=== PATIENT | female | born 1995 | race Caucasian/White ===

== ENCOUNTER 2016-08-18 02:05 | Outpatient (CLI) | payer OTHER ==
[~2016-08-18] VITALS: Ht 152.4 cm; Wt 61.4 kg
[~2016-08-18 02:05] MED LIST: ACET500C5 PO; ASPI1TAB2 PO; BACTDS PO; CEPH-443 PO; CEPH500C PO; DENIES; IBUP-1542 PO; MECL25TA2 PO; METO10TA92 PO
[2016-08-18 02:22] VITALS: Ht 152.4 cm; Wt 61.4 kg
[2016-08-18] MEDS ORDERED: PREN1TAB79 PO (02:22)
[2016-08-18 02:23] VITALS: BP 113/68; PULSE 85; RESP 20
--- NOTE | 2016-08-18 03:22 | PN ---
Date/Time of Note Date/Time of Note DATE: 08/18/16 TIME: 03:16 OB Subjective Subjective Subjective . 21 Year-old G1 with SIUP at 32 4/7 presents with a chief complaint of abdominal pain and diarrhea. She states good movement. She denies nausea, vomiting , shortness of breath, chest pain, headache, visual changes, vaginal bleeding or LOF. OB Objective Objective Objective Physical Exam: General: Patient appears well, alert and oriented, NAD, appropriate mood and affect ABD: gravid, soft, mild epigastric tenderness. Back: No CVA tenderness (B/L) LE: No clubbing, cyanosis, edema, thigh or calf tenderness bilaterally FHT: 135 bpm , moderate variability with acceleration, no deceleration-category I Contractions: Occasional OB Assessment/Plan Other plan: 21 Year-old G1 with SIUP at 32 4/7 wks with epigastric pain and diarrhea - FHR: No sign of metabolic acidosis- Category I - Continuous EFM, toco - Reactive NST - Recommend increase fluid intake - GI cocktail - Abdominal us - Symptoms and sign of labor, preeclampsia, kick count discussed with patient, she voiced understanding. All of her questions answered. - If us is nml, she may discharged home with follow-up with her primary Ob or outpatient clinic in 1-2 days or return to the ER for worsening symptoms or any other urgent concerns. NGHIA CLAY Aug 18, 2016 03:22
[2016-08-18 03:26] LABS: URINE BLOOD (Dip) POC Negative (NEGATIVE)
[2016-08-18] MEDS ORDERED: LIDOCAINE/MYLANTA 40 ML BTL PO ONE (03:30)
--- NOTE | 2016-08-18 04:36 | RADRPT ---
PROCEDURE: Ultrasound of the abdomen. CLINICAL INDICATION: Right upper quadrant pain. TECHNIQUE: Sonographic images of the abdomen were performed. COMPARISON: No pertinent prior examinations were submitted for comparison. FINDINGS: Liver: The liver is normal in echogencity and size measuring approximately 16.6 cm. The hepatic vei ns and portal veins are patent with appropriate directional flow. No intrahepatic ductal dilatation is seen. Gallbladder: The gallbladder is not distended and has normal wall thickness. No pericholecystic flu id or gallstones are visualized. The common duct measures 3.3 mm. Pancreas: Obscured by bowel gas. Kidneys: The right kidney measures 11.7 cm. There is normal corticomedullary differentiation. Ther e is mild right hydronephrosis. No definite urinary calculi are identified. IVC: The visualized portion of the inferior vena cava is unremarkable. Aorta: Normal in size. Free fluid: None. IMPRESSION: Mild right hydronephrosis. RPTAT: HIKT .Abel Russo MD, MD Date Time Electronically viewed and signed by .Abel Russo MD, on 08/18/2016 04:36 .T/
--- NOTE | 2016-08-18 05:49 | TRIAGE ---
OB Triage Datetime Report Generated by CPN: 08/18/2016 05:55 Datetime: 08/18/2016 04:59 Stage of : OB Triage Labor Evaluation Frequency: Irregular Monitor Mode: External Duration (sec)2399: 40-80 Quality: Mild Pattern: Normal: <= 5 Contractions in 10 Minutes Resting Tone Blum: Relaxed Heart Rate FHR Baseline Rate: 130 Monitor Mode: External US FHR Baseline Changes: No Baseline Change Variability: Moderate 6-25 bpm Accelerations: 15X15 Decelerations: None Category: Category I Pain Assessment Pain Scale: 3 Pain Presence: Constant Pain Type: Ache Pain Location: Abdomen Pain Relief Measures: Comfort Measures Pain Assessment Comments: Pt reports decreased abdominal pain. [facility] Datetime: 08/18/2016 04:09 Stage of : OB Triage Pain Assessment Pain Scale: 3 Pain Presence: Constant Pain Type: Ache Pain Location: Abdomen Pain Relief Measures: Pain Medication Given Pain Assessment Comments: Pt reports some relief from abd pain Datetime: 08/18/2016 04:00 Stage of : OB Triage Labor Evaluation Frequency: Irregular Monitor Mode: External Duration (sec)2399: 40-70 Quality: Mild Pattern: Normal: <= 5 Contractions in 10 Minutes Resting Tone Blum: Relaxed Heart Rate FHR Baseline Rate: 130 Monitor Mode: External US FHR Baseline Changes: No Baseline Change Variability: Moderate 6-25 bpm Accelerations: 15X15 Decelerations: None Category: Category I Datetime: 08/18/2016 03:00 Stage of : OB Triage Labor Evaluation Frequency: Irregular Monitor Mode: External Duration (sec)2399: 40-90 Quality: Mild Pattern: Normal: <= 5 Contractions in 10 Minutes Resting Tone Blum: Relaxed Heart Rate FHR Baseline Rate: 130 Monitor Mode: External US Variability: Moderate 6-25 bpm Accelerations: 15X15 Decelerations: None Category: Category I Datetime: 08/18/2016 02:45 Stage of : OB Triage Datetime: 08/18/2016 02:41 EGA: 32.4 Datetime: 08/18/2016 02:18 Stage of : OB Triage Assessment Type: Triage Maternal Assessment Level of Consciousness: Fully Conscious DTR's/Clonus: DTRs 2+; No Clonus Headache: Denies Blurred Vision: No Respiratory Effort: Unlabored; Regular Rhythm; Equal Expansion Breath Sounds, Left: Clear and Equal Breath Sounds, Right: Clear and Equal Nausea/Vomiting: Denies RUQ Epigastric Pain: Present Lower Extremities Edema: None Degree: None Upper Extremities Edema: None Degree: None Facial Edema: None Temperature Route: Oral Fall Risk Assessment History of Falling: (0) No Secondary Diagnosis: (0) No Ambulatory Aid: (0) Bedrest/Nurse Assist IV Therapy: (0) No Gait: (0) Normal/Bedrest/Immobile Mental Status: (0) Oriented to Own Ability Fall Score: 0 Fall Risk Score Definition: No Risk: No action required Pain Assessment Pain Scale: 6 Pain Presence: Constant Pain Type: Ache Pain Location: Abdomen Pain Relief Measures: Comfort Measures Pain Assessment Comments: Pt reports constant abd pain @6/10 increasing to 9/10 intermittently. Datetime: 08/18/2016 02:17 Stage of : OB Triage Monitor Mode: External Contraction Comments: Blum applied Heart Rate FHR Baseline Rate: 140 Monitor Mode: External US Comments: EFM applied Datetime: 08/18/2016 02:15 Time of Arrival: 08/18/2016 02:05 Arrived By: Wheelchair Arrived From: Home Chief Complaint: Upper abdominal pain since 1100 Movement: Present Contractions: Denies/Absent Rupture of Membranes: Denies Vaginal Bleeding: None Vaginal Discharge: Present Recent Sexual Intercouse: Denies Abdominal Trauma: Not Applicable Patient Complaints: Epigastric Pain Time Provider Notified: 08/18/2016 02:45 Provider Notified: Initial Plan: EFM x2
== END 2016-08-18 05:05 | disposition home or self-care (01) ==
LOC: L-D 02:05 → OBT 02:05
PROVIDERS: ATTEND Obstetrics & Gynecology
DX: O26.892 Other specified pregnancy related conditions, second trimester (principal); R10.13 Epigastric pain; R19.7 Diarrhea, unspecified; Z3A.32 32 weeks gestation of pregnancy
CPT/HCPCS: 76705; 81003; Z7500; Z7610; G0463

== ENCOUNTER 2016-09-22 09:32 | Inpatient (IN) | payer OTHER ==
[~2016-09-22] VITALS: Ht 154.9 cm; Wt 64.1 kg
[~2016-09-22 09:32] MED LIST changes: -ACET500C5 PO; -ASPI1TAB2 PO; -BACTDS PO; -CEPH-443 PO; -CEPH500C PO; -DENIES; -IBUP-1542 PO; -MECL25TA2 PO; -METO10TA92 PO; +PREN1TAB79 PO
[2016-09-22] MEDS ORDERED: FERR325C PO (09:48)
[2016-09-22 09:49] VITALS: Ht 154.9 cm; Wt 64.1 kg
[2016-09-22] MEDS ORDERED: CITRACAL PO (09:49)
[2016-09-22 09:50] VITALS: BP 110/62; PULSE 93; RESP 18
[2016-09-22] MEDS ORDERED: MISOPROSTOL 200 MCG TAB PR PRN (11:00)
[2016-09-22] MEDS ORDERED: OXYTOCIN 30 UNITS/LR 500 ML IV PRN (11:00)
[2016-09-22] MEDS ORDERED: METHYLERGONOVINE 0.2 MG INJ IM PRN (11:00)
[2016-09-22] MEDS ORDERED: IBUPROFEN 600 MG TAB PO PRN (11:00)
[2016-09-22] MEDS ORDERED: CARBOPROST 250 MCG INJ IM PRN (11:00)
[2016-09-22] MEDS ORDERED: LIDOCAINE 1% (MPF) 30 ML INJ INJ PRN (11:00)
[2016-09-22] MEDS ORDERED: OXYTOCIN 30 UNITS/LR 500 ML IV SCH ×2 (11:00)
[2016-09-22] MEDS: BUTORPHANOL 2 MG INJ IV PRN ×2 (11:45→22:46)
[2016-09-22] MEDS: LACTATED RINGER'S 1,000 ML IV SCH ×3 (11:45→22:47)
[2016-09-22 12:00] LABS: BASOPHILS % 0.2 % (0.0-2.0); EOSINOPHILS # 0.1 10^3/ul (0.0-0.5); EOSINOPHILS % 0.6 % (0.0-7.0); HEMATOCRIT 36.4 % (37.0-47.0); HEMOGLOBIN 12.8 g/dl (12.0-16.0); LYMPHOCYTES # 1.9 10^3/ul (0.8-2.9); LYMPHOCYTES % 20.5 % (15.0-51.0); MEAN CORPUSCULAR HEMOGLOBIN 32.7 pg (29.0-33.0); MEAN CORPUSCULAR HGB CONC 35.1 g/dl (32.0-37.0); MEAN CORPUSCULAR VOLUME 93.1 fl (82.0-101.0); MEAN PLATELET VOLUME 8.3 fl (7.4-10.4); MONOCYTE # 0.7 10^3/ul (0.3-0.9); MONOCYTES % 7.2 % (0.0-11.0); NEUTROPHIL # 6.6 10^3/ul (1.6-7.5); NEUTROPHILS % 71.5 % (39.0-77.0); PLATELET COUNT 270 10^3/UL (140-440); RED CELL DISTRIBUTION WIDTH 12.4 % (11.5-14.5); UNCORRECTED WBC 9.2 10^3/ul (4.8-10.8); WHITE BLOOD COUNT 9.2 10^3/ul (4.8-10.8)
[2016-09-22 12:01] LABS: CONDITION 1
[2016-09-22 12:06] LABS: INR 0.93; PROTIME 12.5 Sec (12.2-14.2)
[2016-09-22 12:07] LABS: PARTIAL THROMBOPLASTIN TIME 26.6 Sec (25.0-35.0)
[2016-09-23] MEDS: DEXTROSE 5%-LR 1,000 ML IV SCH ×2 (01:06→09:06)
[2016-09-23] MEDS ORDERED: TERBUTALINE 0 ML ONE (01:40)
--- NOTE | 2016-09-23 02:12 | QN ---
Documentation Comment Laborist In to pt room 3x tonight for decels, most severe from baseline 120s to hanna of 60s x3 min. No e/o tetanic contractions, UCs irregular, at times q3-5 min. FHR baseline changed to 110s, low 120s after decel and maternal pulse and FHR were quite similar given intermittent maternal tachycardia. Given multiple decels and difficulty deciphering FHR from maternal pulse, decision made to do a controlled AROM w/FSE and place FSE. Pt verbally consented for AROM w/FSE placement after discussing R/B/A of procedure. FSE placed and fluid clear. SVE 2 /L/high, not ballotable. FHR now in the 130s w/mod variability. Will continue to monitor. CHETNA YIP MD Sep 23, 2016 02:12
[2016-09-23] MEDS: LACTATED RINGER'S 1,000 ML IV SCH ×2 (05:54→16:34)
[2016-09-23] MEDS: LACTATED RINGER'S 1,000 ML IV PRN ×2 (07:42→08:38)
[2016-09-23] MEDS ORDERED: FENTAnyl 2MCG/ML-ROPIV 0.2% 100 ML ONE (08:10)
[2016-09-23] MEDS ORDERED: NALOXONE (0.4 MG/ML) INJ IV PRN (08:30)
[2016-09-23] MEDS ORDERED: ONDANSETRON 4 MG INJ IV PRN (08:30)
[2016-09-23] MEDS ORDERED: DIPHENHYDRAMINE 50 MG INJ IV PRN (08:30)
[2016-09-23] MEDS: FENTAnyl 2MCG/ML-ROPIV 0.2% 100 ML BAG EPI SCH ×2 (09:18→17:45)
[2016-09-23] MEDS ORDERED: ACETAMINOPHEN 325 MG TAB PO ONE (09:30)
[2016-09-23] MEDS ORDERED: AMPICILLIN 2 GM/NS (PMX) 100 ML IVPB ONE (09:30)
[2016-09-23] MEDS: AMPICILLIN 1 GM/NS (PMX) 50 ML IVPB SCH ×3 (12:46→21:00)
[2016-09-23] MEDS ORDERED: CEFAZOLIN 2 GM/50 ML (PMX) 50 ML IV SCH (18:00)
[2016-09-23] MEDS ORDERED: FENTAnyl 50 MCG/ML VIAL ONE (18:01)
[2016-09-23] MEDS ORDERED: LACTATED RINGER'S 1,000 ML IV ONE (18:18)
[2016-09-23] MEDS ORDERED: FAMOTIDINE 20 MG INJ IV ONE (18:30)
[2016-09-23] MEDS ORDERED: METOCLOPRAMIDE 10 MG INJ IV ONE (18:30)
[2016-09-23] MEDS ORDERED: CITRIC ACID/NA CITRATE 30 ML CUP PO ONE (18:30)
[2016-09-23] MEDS ORDERED: LIDOCAINE 2%/EPI 30 ML INJ ONE (20:36)
[2016-09-23] MEDS ORDERED: NA BICARBONATE 8.4% 50 ML SYG ONE (20:36)
[2016-09-23] MEDS ORDERED: morphine SULFATE/PF (10 MG/10 ML) INJ ONE (20:45)
[2016-09-23] MEDS ORDERED: PHENYLephrine (100 MCG/ML) 5ML SYG ONE ×3 (20:46→21:27)
[2016-09-23] MEDS ORDERED: MISOPROSTOL 200 MCG TAB ONE (21:01)
[2016-09-23] MEDS ORDERED: MEPERIDINE 100 MG INJ ONE (21:19)
[2016-09-23] MEDS ORDERED: OXYTOCIN 30 UNITS/LR 500 ML IV ONE ×2 (21:20→21:23)
--- NOTE | 2016-09-23 21:45 | HP ---
Date/Time of Note Date/Time of Note DATE: 09/23/16 TIME: 20:40 OB - History Hx of Present Free Text/Dictation This is a 21 years old female 1 para 0 EDC October 09, 2016 admitted to [facility] at 37 weeks and 4 days with labor contraction pelvic examination on admission at 1154 on September 22 cervical dilatation 2 cm 40% effacement vertex at -3 station patient allowed to continue labor with artificial rupture of membranes of polo coach of September 23 with insertion of internal electrode, labor continued to progress to complete cervical dilatation at approximately 4:30 PM on September 23, in spite of approximately 4 to 5 hours pushing at the second stage of labor presenting part did not descend further than -1 station With a Large caput ,due to failure to descend on the second stage of labor alternative route of delivery discussed with the patient with explaining the procedure primary , also complication that may arise from this procedure patient fully understood the pros and cons post possibility of wound infection and hematoma or hemorrhage ,she agreed and signed the consent for the she is being prepared for the above-mentioned surgery Chief Complaint: Labor contraction Estimated Due Date: Oct 09, 2016 : 1 Para: 0 Care: Good Care Ultrasounds: Normal mid trimester US Obstetrical Complications: None Medical Complications: None Past Family/Social History * Past Medical, Surgical, Family and Obstetric Histories reviewed from chart. Rubella: immune RPR/VDRL: Negative GBS Status: Negative HBsAG: Negative OB Admission Exam Vital Signs Vital Signs Vital Signs Date Time Temp Pulse Resp B/P Pulse Ox O2 Delivery O2 Flow Rate FiO2 09/22/16 09:50 98.6 93 18 110/62 Room Air Physical Exam HEENT: WNL Heart: Rhythm Normal Lungs: Clear, Equal Abdomen: WNL Extremities: Normal Reflexes: Normal Cervical Dilatation: 2cm Effacement: 50% Station: -2 Membranes: Intact Heart Rate: 130's Decelerations: Early Decelerations Varibility: Moderate Intensity: Moderate Last 72 hours Lab Results CBC & BMP 09/22/16 10:40 OB Assessment/Plan Reason for admission: active labor Plan: Section SELAM GORE MD Sep 23, 2016 21:41
[2016-09-23] MEDS: OXYTOCIN 30 UNITS/LR 500 ML IV SCH (22:19)
[2016-09-23] MEDS ORDERED: ACETAMINOPHEN 650 MG SUPP PR PRN (23:00)
[2016-09-23] MEDS: CLINDAMYCIN 900 MG/D5W (PMX) 50 ML IVPB SCH (23:09)
[2016-09-23] MEDS ORDERED: CLINDAMYCIN 900 MG INJ IVPB ONE (23:15)
--- NOTE | 2016-09-23 23:22 | OPR ---
DATE OF OPERATION: 09/23/2016 PREOPERATIVE DIAGNOSES: 1. Intrauterine at 37-1/2 weeks' gestation. 2. labor. 3. Failure to progress, second stage of labor after 4 to 5 hours of pushing. POSTOPERATIVE DIAGNOSES: 1. Intrauterine at 37-1/2 weeks' gestation. 2. labor. 3. Failure to progress, second stage of labor after 4 to 5 hours of pushing. OPERATION PERFORMED: Primary transverse low cervical section. SURGEON: Selam Hermosillo MD BOTTOM TURNING LATHE TENDER: Jessica Lockwood MD ANESTHESIA: Epidural. ANESTHESIOLOGIST: Dr. Knapp FINDINGS: Live baby boy with the Apgars 8 and 9. DETAILS OF THE PROCEDURE: Under satisfactory spinal anesthesia, the patient prepped and draped and placed in supine position tilted to the left. Pfannenstiel incision was made, carried through the subcutaneous tissue. Bleeders brought under control with electrocautery. Fascia incised to the length of incision. Rectus muscle divided in midline. Peritoneum exposed, entered through a transverse incision. Exploration of abdomen, gravid uterus at term, normal-appearing tubes and ovaries, evidence of long labor. Bladder flap was developed. Transverse incision was made over extended lower segment of the uterus. Amniotic sac ruptured. Clear amniotic fluid noted. Live baby boy was delivered from wedged-in occiput transverse position. Nasal oropharyngeal suction was performed. Cord clamped after pulsation and baby handed to the team for immediate attention. The patient received 20 units of Pitocin. Placenta delivered manually intact. Uterine cavity cleaned with wet sponge and drainage established. Uterus closed in 2 layers using Monocryl #1 in continuous fashion. Peritoneal cavity irrigated with warm saline. Sponge, needle, instrument reported to be correct. Abdominal peritoneum closed with 2-0 chromic catgut continuously. Rectus muscle approximated with few interrupted 2-0 chromic catgut. Fascia closed with #1 PDS in continuous fashion. Subcutaneous tissue approximated with 2-0 chromic catgut. Skin closed with rick. Estimated blood loss 600 to 700 mL. Urine bag contained 200 mL of clear urine. The patient tolerated procedure well, transferred to recovery room in good condition. Dictated By: SELAM RAMIREZ/NTS Conf#: [id number] DID#: [id number] [facility]
[2016-09-24] MEDS: GENTAMICIN 80 MG/NS (PMX) 50 ML IVPB SCH ×3 (00:03→15:05)
[2016-09-24] MEDS: OXYTOCIN 30 UNITS/LR 500 ML IV SCH ×4 (00:08→11:08)
--- NOTE | 2016-09-24 00:38 | RADRPT ---
PROCEDURE: XR Chest. CLINICAL INDICATION: Fever. Clinical concern for infection TECHNIQUE: Portable AP semi erect view of the chest was obtained. COMPARISON: None. FINDINGS: The cardiomediastinal silhouette is within normal limits. The lungs are clear. There is no evidenc e for pleural effusion, pneumothorax or pulmonary vascular congestion. The osseous structures are i ntact with no evidence for acute abnormality. RPTAT:HJJR IMPRESSION: No evidence for acute intrathoracic pathology. Physician Raffaele Date Time Electronically viewed and signed by Kevin Ferreira Physician on 09/24/2016 00:38 /
[2016-09-24 02:00] VITALS: BP 117/65; PULSE 109; RESP 18
[2016-09-24] MEDS ORDERED: OXYTOCIN 30 UNITS/LR 500 ML IV PRN (03:00)
[2016-09-24] MEDS ORDERED: METHYLERGONOVINE 0.2 MG INJ IM PRN (03:00)
[2016-09-24] MEDS ORDERED: CEFAZOLIN 1 GM/50 ML (PMX) 50 ML IVPB SCH (03:00)
[2016-09-24] MEDS ORDERED: LANOLIN 7 GM TUBE TOP PRN (03:00)
[2016-09-24] MEDS ORDERED: CARBOPROST 250 MCG INJ IM PRN (03:00)
[2016-09-24] MEDS ORDERED: MISOPROSTOL 200 MCG TAB PR PRN (03:00)
[2016-09-24] MEDS ORDERED: NALOXONE (0.4 MG/ML) INJ IV PRN (03:30)
[2016-09-24] MEDS ORDERED: HYDROmorphONE 1 MG/ML SYG IV PRN ×2 (03:30)
[2016-09-24] MEDS ORDERED: DIPHENHYDRAMINE 50 MG INJ IV PRN (03:30)
[2016-09-24] MEDS ORDERED: ONDANSETRON 4 MG INJ IV PRN (03:30)
[2016-09-24] MEDS ORDERED: ZOLPIDEM 5 MG TAB PO PRN (03:30)
[2016-09-24] MEDS ORDERED: PROCHLORPERAZINE 10 MG INJ IV PRN (03:30)
[2016-09-24 04:00] VITALS: BP 117/70; PULSE 116; RESP 18
[2016-09-24] MEDS: CLINDAMYCIN 900 MG/D5W (PMX) 50 ML IVPB SCH ×3 (05:14→21:26)
[2016-09-24 08:00] VITALS: BP 113/72; PULSE 112; RESP 20
[2016-09-24 08:40] LABS: BASOPHILS % 0.1 % (0.0-2.0); EOSINOPHILS % 0.1 % (0.0-7.0); HEMATOCRIT 31.4 % (37.0-47.0); HEMOGLOBIN 10.8 g/dl (12.0-16.0); LYMPHOCYTES # 2.5 10^3/ul (0.8-2.9); LYMPHOCYTES % 14.2 % (15.0-51.0); MEAN CORPUSCULAR HEMOGLOBIN 32.3 pg (29.0-33.0); MEAN CORPUSCULAR HGB CONC 34.4 g/dl (32.0-37.0); MEAN PLATELET VOLUME 9.7 fl (7.4-10.4); MONOCYTE # 1.1 10^3/ul (0.3-0.9); MONOCYTES % 6.1 % (0.0-11.0); NEUTROPHIL # 13.7 10^3/ul (1.6-7.5); PLATELET COUNT 205 10^3/UL (140-415); RED BLOOD COUNT 3.34 10^6/ul (4.20-5.40); RED CELL DISTRIBUTION WIDTH 12.7 % (11.5-14.5); WHITE BLOOD COUNT 17.4 10^3/ul (4.8-10.8)
--- NOTE | 2016-09-24 09:25 | PN ---
Date/Time of Note Date/Time of Note DATE: 09/24/16 TIME: 09:14 OB Subjective Subjective Subjective Temperature 99.1, resting in bed with stable vital sign abdomen soft week bowel sounds lochia moderate extremity normal, edematous vulvar labia advised intermittent ice pack application on the area' patient is currently on two antibiotics, gentamicin and clindamycin. ,Current Medications Medications (Trade) Dose Ordered Sig/Alcon Route PRN Reason Start Time Stop Time Status Last Admin Dose Admin Lactated Ringer's 1,000 ml @ 125 mls/hr Q8H IV 09/22/16 10:38 09/23/16 16:34 Oxytocin/Lactated Ringer's 500 ml @ 0 mls/hr TITRATE IV 09/22/16 11:00 09/24/16 03:00 DC 09/22/16 11:45 Butorphanol Tartrate (Stadol) 2 mg Q2H PRN IV PAIN 09/22/16 11:00 09/24/16 03:00 DC 09/22/16 22:46 Lidocaine 30 ml 30 ml ONCE PRN INJ EPISIOTOMY/TEARING 09/22/16 11:00 09/24/16 03:00 DC Oxytocin/Lactated Ringer's 500 ml @ 125 mls/hr ONCE -MAY REPEAT X1 IV 09/22/16 11:00 09/24/16 03:00 DC Oxytocin/Lactated Ringer's 500 ml @ 125 mls/hr ONCE IV 09/22/16 11:00 09/24/16 03:00 DC 09/24/16 00:08 Ibuprofen 600 mg 600 mg ONCE PRN PO Mild Pain (Pain Score 1-3) 09/22/16 11:00 09/24/16 03:00 DC Lactated Ringer's 1,000 ml @ 2,000 mls/hr Q30M PRN IV PRE-EPIDURAL BOLUS 09/22/16 11:00 09/24/16 03:00 DC 09/23/16 08:38 Oxytocin/Lactated Ringer's 500 ml @ 0 mls/hr ONCE PRN IV For Hemorrhage Management 09/22/16 11:00 09/24/16 03:00 DC Methylergonovine Maleate (Methergine) 0.2 mg ONCE PRN IM VAGINAL BLEEDING 09/22/16 11:00 09/24/16 03:00 DC Carboprost Tromethamine (Hemabate) 250 mcg ONCE PRN IM VAGINAL BLEEDING 09/22/16 11:00 09/24/16 03:00 DC Misoprostol 1000 mcg 1,000 mcg ONCE PRN MT VAGINAL BLEEDING 09/22/16 11:00 09/24/16 03:00 DC Dextrose/Lactated Ringer's 1,000 ml @ 125 mls/hr Q8H IV 09/23/16 01:06 09/24/16 03:00 DC Terbutaline Sulfate (Brethine) 0 ml @ ud STK-MED ONCE .ROUTE 09/23/16 01:40 09/23/16 01:41 DC Naloxone HCl (Narcan) 0.1 mg Q2M PRN IV FOR RESP RATE 8 OR LESS 09/23/16 08:30 09/24/16 03:44 DC Diphenhydramine HCl (Benadryl) 25 mg Q6H PRN IV ITCHING 09/23/16 08:30 09/24/16 03:44 DC Ondansetron HCl (Zofran Inj) 4 mg Q6H PRN IV NAUSEA AND/OR VOMITING 09/23/16 08:30 09/24/16 03:44 DC Fentanyl/ Ropivacaine 100 ml 100 ml EPIDURAL INFUSION EPI 09/23/16 08:30 09/24/16 03:00 DC 09/23/16 17:45 Fentanyl/ Ropivacaine 100 ml @ ud STK-MED ONCE .ROUTE 09/23/16 08:10 09/23/16 08:11 DC Acetaminophen 650 mg 650 mg ONCE ONCE PO 09/23/16 09:30 09/23/16 09:58 DC 09/23/16 09:26 Ampicillin 100 ml @ 100 mls/hr ONCE ONCE IVPB 09/23/16 09:30 09/23/16 10:29 DC 09/23/16 09:34 Ampicillin 50 ml @ 100 mls/hr Q4 IVPB 09/23/16 13:00 09/24/16 03:00 DC 09/23/16 16:46 Cefazolin Sodium/ Dextrose (Ancef 2 Gm/50 ml (Pmx)) 50 ml @ 100 mls/hr ONCE IV 09/23/16 18:00 09/24/16 03:00 DC Fentanyl 100 mcg 100 mcg STK-MED ONCE .ROUTE 09/23/16 18:01 09/23/16 18:02 DC Lactated Ringer's (Lr) 1,000 ml @ 1,000 mls/hr Q1H ONCE IV 09/23/16 18:18 09/23/16 19:17 DC 09/23/16 18:33 Citric Acid/ Sodium Citrate (Bicitra) 30 ml pre-procedure ONCE PO 09/23/16 18:30 09/23/16 18:31 DC 09/23/16 20:20 Famotidine (Pepcid Iv) 20 mg pre-procedure ONCE IV 09/23/16 18:30 09/23/16 18:31 DC 09/23/16 20:20 Metoclopramide HCl (Reglan) 10 mg ONCE ONCE IV 09/23/16 18:30 09/23/16 18:31 DC 09/23/16 20:20 Sodium Bicarbonate (Na Bicarb 8.4% Syg) 50 ml STK-MED ONCE .ROUTE 09/23/16 20:36 09/23/16 20:37 DC Lidocaine/ Epinephrine (Xylocaine 2%/ Epi) 30 ml STK-MED ONCE .ROUTE 09/23/16 20:36 09/23/16 20:37 DC Morphine Sulfate (Duramorph) 10 mg STK-MED ONCE .ROUTE 09/23/16 20:45 09/23/16 20:46 DC Phenylephrine HCl (Aidan-Synephrine Inj Syg) 500 mcg STK-MED ONCE .ROUTE 09/23/16 20:46 09/23/16 20:47 DC Misoprostol (Cytotec) 200 mcg STK-MED ONCE .ROUTE 09/23/16 21:01 09/23/16 21:02 DC Phenylephrine HCl (Aidan-Synephrine Inj Syg) 500 mcg STK-MED ONCE .ROUTE 09/23/16 21:08 09/23/16 21:09 DC Meperidine HCl 100 mg 100 mg STK-MED ONCE .ROUTE 09/23/16 21:19 09/23/16 21:20 DC Oxytocin/Lactated Ringer's 500 ml @ ud STK-MED ONCE IV 09/23/16 21:20 09/23/16 21:21 DC Oxytocin/Lactated Ringer's 500 ml @ ud STK-MED ONCE IV 09/23/16 21:23 09/23/16 21:24 DC Phenylephrine HCl (Aidan-Synephrine Inj Syg) 500 mcg STK-MED ONCE .ROUTE 09/23/16 21:27 09/23/16 21:28 DC Clindamycin Phosphate 900 mg 900 mg TID ONCE IVPB 09/23/16 23:15 09/23/16 23:16 UNV Clindamycin HCl/ Dextrose 50 ml @ 50 mls/hr Q8 IVPB 09/23/16 22:37 09/24/16 05:14 Gentamicin Sulfate (Gentamicin) 50 ml @ 104 mls/hr Q8H IVPB 09/23/16 23:00 09/24/16 07:06 Acetaminophen (Tylenol Supp) 650 mg Q6H PRN MT ELEVATED TEMPERATURE 09/23/16 23:00 09/23/16 23:00 Acetaminophen/ Codeine Phosphate (Tylenol No.3) 1 tab Q4H PRN PO PAIN LEVEL 4-6 09/24/16 20:45 Acetaminophen/ Codeine Phosphate (Tylenol No.3) 2 tab Q4H PRN PO PAIN LEVEL 7-10 09/24/16 20:45 Oxycodone/ Acetaminophen (Percocet (5/ 325)) 1 tab Q4H PRN PO PAIN LEVEL 4-6 09/24/16 20:45 Oxycodone/ Acetaminophen (Percocet (5/ 325)) 2 tab Q4H PRN PO PAIN LEVEL 7-10 09/24/16 20:45 Ibuprofen (Motrin) 600 mg Q6 PO 09/25/16 06:00 Simethicone (Mylicon) 160 mg Q8H PRN PO DISTENSION/GAS/BLOATING 09/24/16 03:00 Senna/Docusate Sodium (Senokot-S) 1 tab BID PO 09/24/16 09:00 Lanolin (Psh-I-Yzgfne) 1 applic BEDSIDE MEDICATION PRN TOP BEDSIDE FOR CORIE TO NIPPLES 09/24/16 03:00 Diphtheria/ Tetanus/Acell Pertussis 0.5 ml 0.5 ml ONCE ONCE IM* 09/26/16 09:00 09/26/16 09:01 Oxytocin/Lactated Ringer's 500 ml @ 0 mls/hr ONCE PRN IV For Hemorrhage Management 09/24/16 03:00 Methylergonovine Maleate (Methergine) 0.2 mg ONCE PRN IM VAGINAL BLEEDING 09/24/16 03:00 Carboprost Tromethamine (Hemabate) 250 mcg ONCE PRN IM VAGINAL BLEEDING 09/24/16 03:00 Misoprostol 1000 mcg 1,000 mcg ONCE PRN MT VAGINAL BLEEDING 09/24/16 03:00 Cefazolin Sodium 50 ml @ 100 mls/hr ONCE IVPB 09/24/16 03:00 09/24/16 03:01 DC Oxytocin/Lactated Ringer's 500 ml @ 125 mls/hr Q4H IV 09/24/16 02:55 09/24/16 05:14 Ketorolac Tromethamine (Toradol) 30 mg Q8H PRN IV PAIN 09/24/16 03:30 09/25/16 03:29 Naloxone HCl (Narcan) 0.1 mg Q2M PRN IV FOR RESP RATE 8 OR LESS 09/24/16 03:30 09/24/16 21:14 Hydromorphone HCl (Dilaudid) 0.2 mg Q3H PRN IV PAIN LEVEL 1-5 09/24/16 03:30 09/24/16 21:14 Hydromorphone HCl (Dilaudid) 0.4 mg Q3H PRN IV PAIN LEVEL 6-10 09/24/16 03:30 09/24/16 21:14 Diphenhydramine HCl (Benadryl) 25 mg Q6H PRN IV ITCHING 09/24/16 03:30 09/24/16 21:14 Ondansetron HCl (Zofran Inj) 4 mg Q6H PRN IV NAUSEA AND/OR VOMITING 09/24/16 03:30 09/24/16 21:14 Prochlorperazine (Compazine Inj) 10 mg ONCE PRN IV NAUSEA AND/OR VOMITING 09/24/16 03:30 09/24/16 21:14 Zolpidem Tartrate (Ambien) 5 mg HS MAY REPEAT X 1 PRN PO INSOMNIA 09/24/16 03:30 09/24/16 21:14 Miscellaneous Information (* Miscellaneous Pharmacy Order) Duramorph: 3 mg Epidu... GIVEN XX 09/24/16 03:30 09/24/16 03:59 DC Miscellaneous Information (* Miscellaneous Pharmacy Order) Duramorph: 3 mg Epidu... GIVEN ONCE XX 09/24/16 04:00 09/24/16 04:01 SELAM MADRID MD Sep 24, 2016 09:25
[2016-09-24] MEDS: SENNA/DOCUSATE NA (8.6MG/50MG) TAB PO SCH ×2 (09:37→21:26)
[2016-09-24] MEDS: KETOROLAC 30 MG INJ IV PRN ×2 (10:31→18:15)
[2016-09-24] MEDS ORDERED: ACETAMINOPHEN 325 MG TAB PO PRN (11:00)
[2016-09-24] MEDS: LACTATED RINGER'S 1,000 ML IV SCH ×2 (11:09→15:12)
[2016-09-24 12:00] VITALS: BP 113/63; PULSE 93; RESP 20
[2016-09-24 16:00] VITALS: BP 99/50; PULSE 93; RESP 18
[2016-09-24 20:15] VITALS: BP 108/73; PULSE 85; RESP 18
[2016-09-24] MEDS ORDERED: OXYCODONE/ACETAMINOPHEN (5/325) TAB PO PRN (20:45)
[2016-09-24] MEDS ORDERED: ACETAMINOPHEN/CODEINE #3 TAB PO PRN ×2 (20:45)
[2016-09-25] MEDS: GENTAMICIN 80 MG/NS (PMX) 50 ML IVPB SCH ×4 (00:08→23:36)
[2016-09-25] MEDS: LACTATED RINGER'S 1,000 ML IV SCH ×3 (02:38→18:38)
[2016-09-25 04:00] VITALS: BP_SYST 119; BP_SYST 99; BP_DIAS 53; BP_DIAS 70; PULSE 71; PULSE 91; RESP 18
[2016-09-25] MEDS: IBUPROFEN 600 MG TAB PO SCH ×3 (05:31→17:30)
[2016-09-25] MEDS: CLINDAMYCIN 900 MG/D5W (PMX) 50 ML IVPB SCH ×3 (05:32→22:13)
[2016-09-25 08:30] VITALS: BP 103/66; PULSE 84; RESP 16
[2016-09-25] MEDS: SENNA/DOCUSATE NA (8.6MG/50MG) TAB PO SCH ×2 (09:47→22:12)
--- NOTE | 2016-09-25 09:49 | PN ---
Date/Time of Note Date/Time of Note DATE: 09/25/16 TIME: 09:43 OB Subjective Subjective Subjective Postoperative day 2 Afebrile temperature 98.6 vital sign is stable abdomen soft incision dry bowel sound present no bowel movement ambulation recommended will continue antibiotics pending CBC result, warm or edema is improving . Current Medications Medications (Trade) Dose Ordered Sig/Alcon Route PRN Reason Start Time Stop Time Status Last Admin Dose Admin Lactated Ringer's 1,000 ml @ 125 mls/hr Q8H IV 09/22/16 10:38 09/24/16 15:12 Oxytocin/Lactated Ringer's 500 ml @ 0 mls/hr TITRATE IV 09/22/16 11:00 09/24/16 03:00 DC 09/22/16 11:45 Butorphanol Tartrate (Stadol) 2 mg Q2H PRN IV PAIN 09/22/16 11:00 09/24/16 03:00 DC 09/22/16 22:46 Lidocaine 30 ml 30 ml ONCE PRN INJ EPISIOTOMY/TEARING 09/22/16 11:00 09/24/16 03:00 DC Oxytocin/Lactated Ringer's 500 ml @ 125 mls/hr ONCE -MAY REPEAT X1 IV 09/22/16 11:00 09/24/16 03:00 DC Oxytocin/Lactated Ringer's 500 ml @ 125 mls/hr ONCE IV 09/22/16 11:00 09/24/16 03:00 DC 09/24/16 00:08 Ibuprofen 600 mg 600 mg ONCE PRN PO Mild Pain (Pain Score 1-3) 09/22/16 11:00 09/24/16 03:00 DC Lactated Ringer's 1,000 ml @ 2,000 mls/hr Q30M PRN IV PRE-EPIDURAL BOLUS 09/22/16 11:00 09/24/16 03:00 DC 09/23/16 08:38 Oxytocin/Lactated Ringer's 500 ml @ 0 mls/hr ONCE PRN IV For Hemorrhage Management 09/22/16 11:00 09/24/16 03:00 DC Methylergonovine Maleate (Methergine) 0.2 mg ONCE PRN IM VAGINAL BLEEDING 09/22/16 11:00 09/24/16 03:00 DC Carboprost Tromethamine (Hemabate) 250 mcg ONCE PRN IM VAGINAL BLEEDING 09/22/16 11:00 09/24/16 03:00 DC Misoprostol 1000 mcg 1,000 mcg ONCE PRN [place] VAGINAL BLEEDING 09/22/16 11:00 09/24/16 03:00 DC Dextrose/Lactated Ringer's 1,000 ml @ 125 mls/hr Q8H IV 09/23/16 01:06 09/24/16 03:00 DC Terbutaline Sulfate (Brethine) 0 ml @ ud STK-MED ONCE .ROUTE 09/23/16 01:40 09/23/16 01:41 DC Naloxone HCl (Narcan) 0.1 mg Q2M PRN IV FOR RESP RATE 8 OR LESS 09/23/16 08:30 09/24/16 03:44 DC Diphenhydramine HCl (Benadryl) 25 mg Q6H PRN IV ITCHING 09/23/16 08:30 09/24/16 03:44 DC Ondansetron HCl (Zofran Inj) 4 mg Q6H PRN IV NAUSEA AND/OR VOMITING 09/23/16 08:30 09/24/16 03:44 DC Fentanyl/ Ropivacaine 100 ml 100 ml EPIDURAL INFUSION EPI 09/23/16 08:30 09/24/16 03:00 DC 09/23/16 17:45 Fentanyl/ Ropivacaine 100 ml @ ud STK-MED ONCE .ROUTE 09/23/16 08:10 09/23/16 08:11 DC Acetaminophen 650 mg 650 mg ONCE ONCE PO 09/23/16 09:30 09/23/16 09:58 DC 09/23/16 09:26 Ampicillin 100 ml @ 100 mls/hr ONCE ONCE IVPB 09/23/16 09:30 09/23/16 10:29 DC 09/23/16 09:34 Ampicillin 50 ml @ 100 mls/hr Q4 IVPB 09/23/16 13:00 09/24/16 03:00 DC 09/23/16 16:46 Cefazolin Sodium/ Dextrose (Ancef 2 Gm/50 ml (Pmx)) 50 ml @ 100 mls/hr ONCE IV 09/23/16 18:00 09/24/16 03:00 DC Fentanyl 100 mcg 100 mcg STK-MED ONCE .ROUTE 09/23/16 18:01 09/23/16 18:02 DC Lactated Ringer's (Lr) 1,000 ml @ 1,000 mls/hr Q1H ONCE IV 09/23/16 18:18 09/23/16 19:17 DC 09/23/16 18:33 Citric Acid/ Sodium Citrate (Bicitra) 30 ml pre-procedure ONCE PO 09/23/16 18:30 09/23/16 18:31 DC 09/23/16 20:20 Famotidine (Pepcid Iv) 20 mg pre-procedure ONCE IV 09/23/16 18:30 09/23/16 18:31 DC 09/23/16 20:20 Metoclopramide HCl (Reglan) 10 mg ONCE ONCE IV 09/23/16 18:30 09/23/16 18:31 DC 09/23/16 20:20 Sodium Bicarbonate (Na Bicarb 8.4% Syg) 50 ml STK-MED ONCE .ROUTE 09/23/16 20:36 09/23/16 20:37 DC Lidocaine/ Epinephrine (Xylocaine 2%/ Epi) 30 ml STK-MED ONCE .ROUTE 09/23/16 20:36 09/23/16 20:37 DC Morphine Sulfate (Duramorph) 10 mg STK-MED ONCE .ROUTE 09/23/16 20:45 09/23/16 20:46 DC Phenylephrine HCl (Aidan-Synephrine Inj Syg) 500 mcg STK-MED ONCE .ROUTE 09/23/16 20:46 09/23/16 20:47 DC Misoprostol (Cytotec) 200 mcg STK-MED ONCE .ROUTE 09/23/16 21:01 09/23/16 21:02 DC Phenylephrine HCl (Aidan-Synephrine Inj Syg) 500 mcg STK-MED ONCE .ROUTE 09/23/16 21:08 09/23/16 21:09 DC Meperidine HCl 100 mg 100 mg STK-MED ONCE .ROUTE 09/23/16 21:19 09/23/16 21:20 DC Oxytocin/Lactated Ringer's 500 ml @ ud STK-MED ONCE IV 09/23/16 21:20 09/23/16 21:21 DC Oxytocin/Lactated Ringer's 500 ml @ ud STK-MED ONCE IV 09/23/16 21:23 09/23/16 21:24 DC Phenylephrine HCl (Aidan-Synephrine Inj Syg) 500 mcg STK-MED ONCE .ROUTE 09/23/16 21:27 09/23/16 21:28 DC Clindamycin Phosphate 900 mg 900 mg TID ONCE IVPB 09/23/16 23:15 09/23/16 23:16 UNV Clindamycin HCl/ Dextrose 50 ml @ 50 mls/hr Q8 IVPB 09/23/16 22:37 09/25/16 05:32 Gentamicin Sulfate (Gentamicin) 50 ml @ 104 mls/hr Q8H IVPB 09/23/16 23:00 09/25/16 07:02 Acetaminophen (Tylenol Supp) 650 mg Q6H PRN [place] ELEVATED TEMPERATURE 09/23/16 23:00 09/23/16 23:00 Acetaminophen/ Codeine Phosphate (Tylenol No.3) 1 tab Q4H PRN PO PAIN LEVEL 4-6 09/24/16 20:45 09/25/16 04:00 Acetaminophen/ Codeine Phosphate (Tylenol No.3) 2 tab Q4H PRN PO PAIN LEVEL 7-10 09/24/16 20:45 Oxycodone/ Acetaminophen (Percocet (5/ 325)) 1 tab Q4H PRN PO PAIN LEVEL 4-6 09/24/16 20:45 Oxycodone/ Acetaminophen (Percocet (5/ 325)) 2 tab Q4H PRN PO PAIN LEVEL 7-10 09/24/16 20:45 Ibuprofen (Motrin) 600 mg Q6 PO 09/25/16 06:00 09/25/16 05:31 Simethicone (Mylicon) 160 mg Q8H PRN PO DISTENSION/GAS/BLOATING 09/24/16 03:00 Senna/Docusate Sodium (Senokot-S) 1 tab BID PO 09/24/16 09:00 09/24/16 21:26 Lanolin (Emk-U-Naglnf) 1 applic BEDSIDE MEDICATION PRN TOP BEDSIDE FOR CORIE TO NIPPLES 09/24/16 03:00 Diphtheria/ Tetanus/Acell Pertussis 0.5 ml 0.5 ml ONCE ONCE IM* 09/26/16 09:00 09/26/16 09:01 Oxytocin/Lactated Ringer's 500 ml @ 0 mls/hr ONCE PRN IV For Hemorrhage Management 09/24/16 03:00 Methylergonovine Maleate (Methergine) 0.2 mg ONCE PRN IM VAGINAL BLEEDING 09/24/16 03:00 Carboprost Tromethamine (Hemabate) 250 mcg ONCE PRN IM VAGINAL BLEEDING 09/24/16 03:00 Misoprostol 1000 mcg 1,000 mcg ONCE PRN [place] VAGINAL BLEEDING 09/24/16 03:00 Cefazolin Sodium 50 ml @ 100 mls/hr ONCE IVPB 09/24/16 03:00 09/24/16 03:01 DC Oxytocin/Lactated Ringer's 500 ml @ 125 mls/hr Q4H IV 09/24/16 02:55 09/25/16 07:40 DC 09/24/16 11:08 Ketorolac Tromethamine (Toradol) 30 mg Q8H PRN IV PAIN 09/24/16 03:30 09/25/16 03:29 DC 09/24/16 18:15 Naloxone HCl (Narcan) 0.1 mg Q2M PRN IV FOR RESP RATE 8 OR LESS 09/24/16 03:30 09/24/16 21:14 DC Hydromorphone HCl (Dilaudid) 0.2 mg Q3H PRN IV PAIN LEVEL 1-5 09/24/16 03:30 09/24/16 21:14 DC Hydromorphone HCl (Dilaudid) 0.4 mg Q3H PRN IV PAIN LEVEL 6-10 09/24/16 03:30 09/24/16 21:14 DC Diphenhydramine HCl (Benadryl) 25 mg Q6H PRN IV ITCHING 09/24/16 03:30 09/24/16 21:14 DC Ondansetron HCl (Zofran Inj) 4 mg Q6H PRN IV NAUSEA AND/OR VOMITING 09/24/16 03:30 09/24/16 21:14 DC Prochlorperazine (Compazine Inj) 10 mg ONCE PRN IV NAUSEA AND/OR VOMITING 09/24/16 03:30 09/24/16 21:14 DC Zolpidem Tartrate (Ambien) 5 mg HS MAY REPEAT X 1 PRN PO INSOMNIA 09/24/16 03:30 09/24/16 21:14 DC Miscellaneous Information (* Miscellaneous Pharmacy Order) Duramorph: 3 mg Epidu... GIVEN XX 09/24/16 03:30 09/24/16 03:59 DC Miscellaneous Information (* Miscellaneous Pharmacy Order) Duramorph: 3 mg Epidu... GIVEN ONCE XX 09/24/16 04:00 09/24/16 04:01 DC Acetaminophen (Tylenol Tab) 650 mg Q4H PRN PO PAIN AND OR ELEVATED TEMP 09/24/16 11:00 SELAM GORE MD Sep 25, 2016 09:49
[2016-09-25] MEDS: OXYCODONE/ACETAMINOPHEN (5/325) TAB PO PRN ×2 (11:58→18:45)
[2016-09-25 12:08] LABS: ADD SCAN DIFF NO
[2016-09-25 12:10] LABS: BASOPHILS % 0.1 % (0.0-2.0); EOSINOPHILS # 0.2 10^3/ul (0.0-0.5); EOSINOPHILS % 1.1 % (0.0-7.0); HEMATOCRIT 32.6 % (37.0-47.0); HEMOGLOBIN 11.2 g/dl (12.0-16.0); LYMPHOCYTES % 12.2 % (15.0-51.0); MEAN CORPUSCULAR HEMOGLOBIN 32.1 pg (29.0-33.0); MEAN CORPUSCULAR HGB CONC 34.4 g/dl (32.0-37.0); MEAN CORPUSCULAR VOLUME 93.4 fl (82.0-101.0); MEAN PLATELET VOLUME 9.5 fl (7.4-10.4); MONOCYTES % 6.2 % (0.0-11.0); NEUTROPHIL # 13.2 10^3/ul (1.6-7.5); NEUTROPHILS % 79.6 % (39.0-77.0); PLATELET COUNT 232 10^3/UL (140-415); RED BLOOD COUNT 3.49 10^6/ul (4.20-5.40); RED CELL DISTRIBUTION WIDTH 12.5 % (11.5-14.5); WHITE BLOOD COUNT 16.5 10^3/ul (4.8-10.8)
[2016-09-25 12:30] VITALS: BP 103/69; PULSE 88; RESP 16
[2016-09-25 16:00] VITALS: BP 103/65; PULSE 84; RESP 16
[2016-09-25 20:00] VITALS: BP 103/70; PULSE 72; RESP 18
[2016-09-25] MEDS: NA PHOSPHATE/BIPHOS 133 ML ENEMA PR ONE (22:13)
[2016-09-26] MEDS: LACTATED RINGER'S 1,000 ML IV SCH ×3 (02:38→10:38)
[2016-09-26 04:00] VITALS: BP 111/82; PULSE 76; RESP 18
[2016-09-26] MEDS: CLINDAMYCIN 900 MG/D5W (PMX) 50 ML IVPB SCH ×2 (05:40→14:00)
[2016-09-26] MEDS: IBUPROFEN 600 MG TAB PO SCH ×3 (06:00→12:07)
[2016-09-26] MEDS: GENTAMICIN 80 MG/NS (PMX) 50 ML IVPB SCH (06:30)
[2016-09-26 08:00] VITALS: BP 112/73; PULSE 85; RESP 19
[2016-09-26] MEDS: NA PHOSPHATE/BIPHOS 133 ML ENEMA PR ONE (08:10)
[2016-09-26] MEDS ORDERED: DIPHTH/TET/ACEL PERTUSS (ADULT) 0.5 ML VIAL IM* ONE (09:00)
[2016-09-26] MEDS: SENNA/DOCUSATE NA (8.6MG/50MG) TAB PO SCH (09:33)
--- NOTE | 2016-09-26 12:05 | PD.PPDC ---
CLERK SUPERVISOR Discharge Instruction Condition Patient Condition: Good Activity/Restrictions Activity: Normal Activity May Shower Restrictions: No Exercising No Lifting No Driving No Sexual Activity Nothing in the Vagina No Bessie No Tampons, douche Wound/Drain Care Instructions Wound/Drain Care Instructions: Remove Steri Strips in 1 week Follow-up Follow-up with Physician: 4, Day/Days Provider Information: Wound care instructions given advised to make appointment in 3-4 days with the clinic to [facility] Return to clinic for CLINICAL CARE MANAGER Instructions: Fever greater than 101 Worsening abdominal pain More than 2 pads per hour OB Instructions: Blurried Vision Headache Surgical Instructions: Incisional Drainage Incisional Redness SELAM GORE MD Sep 26, 2016 12:05
--- NOTE | 2016-09-26 12:13 | DS ---
Date/Time of Note Date/Time of Note DATE: 09/26/16 TIME: 12:06 Obstetrical Discharge Record Final Diagnosis Final Diagnosis: Term delivered Section Section: Primary Complications Other Augmentation: Yes (failure to descent in second stage of the for approximately 4-5 hours) Rupture of Membranes: No Condition on Discharge Physical Assessment Last Vitals: Vital signs stable, afebrile abdomen soft incision dry free of inflammation patient had normal bowel movement her lochia moderate valvar edema has subsided advised to continue sitzbath at home recommended to make appointment in 3 days to be seen at the office to JEAN cabrera Current Medications Medications (Trade) Dose Ordered Sig/Alcon Route PRN Reason Start Time Stop Time Status Last Admin Dose Admin Lactated Ringer's 1,000 ml @ 125 mls/hr Q8H IV 09/22/16 10:38 09/24/16 15:12 Oxytocin/Lactated Ringer's 500 ml @ 0 mls/hr TITRATE IV 09/22/16 11:00 09/24/16 03:00 DC 09/22/16 11:45 Butorphanol Tartrate (Stadol) 2 mg Q2H PRN IV PAIN 09/22/16 11:00 09/24/16 03:00 DC 09/22/16 22:46 Lidocaine 30 ml 30 ml ONCE PRN INJ EPISIOTOMY/TEARING 09/22/16 11:00 09/24/16 03:00 DC Oxytocin/Lactated Ringer's 500 ml @ 125 mls/hr ONCE -MAY REPEAT X1 IV 09/22/16 11:00 09/24/16 03:00 DC Oxytocin/Lactated Ringer's 500 ml @ 125 mls/hr ONCE IV 09/22/16 11:00 09/24/16 03:00 DC 09/24/16 00:08 Ibuprofen 600 mg 600 mg ONCE PRN PO Mild Pain (Pain Score 1-3) 09/22/16 11:00 09/24/16 03:00 DC Lactated Ringer's 1,000 ml @ 2,000 mls/hr Q30M PRN IV PRE-EPIDURAL BOLUS 09/22/16 11:00 09/24/16 03:00 DC 09/23/16 08:38 Oxytocin/Lactated Ringer's 500 ml @ 0 mls/hr ONCE PRN IV For Hemorrhage Management 09/22/16 11:00 09/24/16 03:00 DC Methylergonovine Maleate (Methergine) 0.2 mg ONCE PRN IM VAGINAL BLEEDING 09/22/16 11:00 09/24/16 03:00 DC Carboprost Tromethamine (Hemabate) 250 mcg ONCE PRN IM VAGINAL BLEEDING 09/22/16 11:00 09/24/16 03:00 DC Misoprostol 1000 mcg 1,000 mcg ONCE PRN [place] VAGINAL BLEEDING 09/22/16 11:00 09/24/16 03:00 DC Dextrose/Lactated Ringer's 1,000 ml @ 125 mls/hr Q8H IV 09/23/16 01:06 09/24/16 03:00 DC Terbutaline Sulfate (Brethine) 0 ml @ STK-MED ONCE .ROUTE 09/23/16 01:40 09/23/16 01:41 DC Naloxone HCl (Narcan) 0.1 mg Q2M PRN IV FOR RESP RATE 8 OR LESS 09/23/16 08:30 09/24/16 03:44 DC Diphenhydramine HCl (Benadryl) 25 mg Q6H PRN IV ITCHING 09/23/16 08:30 09/24/16 03:44 DC Ondansetron HCl (Zofran Inj) 4 mg Q6H PRN IV NAUSEA AND/OR VOMITING 09/23/16 08:30 09/24/16 03:44 DC Fentanyl/ Ropivacaine 100 ml 100 ml EPIDURAL INFUSION EPI 09/23/16 08:30 09/24/16 03:00 DC 09/23/16 17:45 Fentanyl/ Ropivacaine 100 ml @ STK-MED ONCE .ROUTE 09/23/16 08:10 09/23/16 08:11 DC Acetaminophen 650 mg 650 mg ONCE ONCE PO 09/23/16 09:30 09/23/16 09:58 DC 09/23/16 09:26 Ampicillin 100 ml @ 100 mls/hr ONCE ONCE IVPB 09/23/16 09:30 09/23/16 10:29 DC 09/23/16 09:34 Ampicillin 50 ml @ 100 mls/hr Q4 IVPB 09/23/16 13:00 09/24/16 03:00 DC 09/23/16 16:46 Cefazolin Sodium/ Dextrose (Ancef 2 Gm/50 ml (Pmx)) 50 ml @ 100 mls/hr ONCE IV 09/23/16 18:00 09/24/16 03:00 DC Fentanyl 100 mcg 100 mcg STK-MED ONCE .ROUTE 09/23/16 18:01 09/23/16 18:02 DC Lactated Ringer's (Lr) 1,000 ml @ 1,000 mls/hr Q1H ONCE IV 09/23/16 18:18 09/23/16 19:17 DC 09/23/16 18:33 Citric Acid/ Sodium Citrate (Bicitra) 30 ml pre-procedure ONCE PO 09/23/16 18:30 09/23/16 18:31 DC 09/23/16 20:20 Famotidine (Pepcid Iv) 20 mg pre-procedure ONCE IV 09/23/16 18:30 09/23/16 18:31 DC 09/23/16 20:20 Metoclopramide HCl (Reglan) 10 mg ONCE ONCE IV 09/23/16 18:30 09/23/16 18:31 DC 09/23/16 20:20 Sodium Bicarbonate (Na Bicarb 8.4% Syg) 50 ml STK-MED ONCE .ROUTE 09/23/16 20:36 09/23/16 20:37 DC Lidocaine/ Epinephrine (Xylocaine 2%/ Epi) 30 ml STK-MED ONCE .ROUTE 09/23/16 20:36 09/23/16 20:37 DC Morphine Sulfate (Duramorph) 10 mg STK-MED ONCE .ROUTE 09/23/16 20:45 09/23/16 20:46 DC Phenylephrine HCl (Aidan-Synephrine Inj Syg) 500 mcg STK-MED ONCE .ROUTE 09/23/16 20:46 09/23/16 20:47 DC Misoprostol (Cytotec) 200 mcg STK-MED ONCE .ROUTE 09/23/16 21:01 09/23/16 21:02 DC Phenylephrine HCl (Aidan-Synephrine Inj Syg) 500 mcg STK-MED ONCE .ROUTE 09/23/16 21:08 09/23/16 21:09 DC Meperidine HCl 100 mg 100 mg STK-MED ONCE .ROUTE 09/23/16 21:19 09/23/16 21:20 DC Oxytocin/Lactated Ringer's 500 ml @ ud STK-MED ONCE IV 09/23/16 21:20 09/23/16 21:21 DC Oxytocin/Lactated Ringer's 500 ml @ ud STK-MED ONCE IV 09/23/16 21:23 09/23/16 21:24 DC Phenylephrine HCl (Aidan-Synephrine Inj Syg) 500 mcg STK-MED ONCE .ROUTE 09/23/16 21:27 09/23/16 21:28 DC Clindamycin Phosphate 900 mg 900 mg TID ONCE IVPB 09/23/16 23:15 09/23/16 23:16 UNV Clindamycin HCl/ Dextrose 50 ml @ 50 mls/hr Q8 IVPB 09/23/16 22:37 09/26/16 05:40 Gentamicin Sulfate (Gentamicin) 50 ml @ 104 mls/hr Q8H IVPB 09/23/16 23:00 09/26/16 06:30 Acetaminophen (Tylenol Supp) 650 mg Q6H PRN [place] ELEVATED TEMPERATURE 09/23/16 23:00 09/23/16 23:00 Acetaminophen/ Codeine Phosphate (Tylenol No.3) 1 tab Q4H PRN PO PAIN LEVEL 4-6 09/24/16 20:45 09/25/16 04:00 Acetaminophen/ Codeine Phosphate (Tylenol No.3) 2 tab Q4H PRN PO PAIN LEVEL 7-10 09/24/16 20:45 09/26/16 03:43 Oxycodone/ Acetaminophen (Percocet (5/ 325)) 1 tab Q4H PRN PO PAIN LEVEL 4-6 09/24/16 20:45 Oxycodone/ Acetaminophen (Percocet (5/ 325)) 2 tab Q4H PRN PO PAIN LEVEL 7-10 09/24/16 20:45 09/25/16 18:45 Ibuprofen (Motrin) 600 mg Q6 PO 09/25/16 06:00 09/25/16 17:30 Simethicone (Mylicon) 160 mg Q8H PRN PO DISTENSION/GAS/BLOATING 09/24/16 03:00 Senna/Docusate Sodium (Senokot-S) 1 tab BID PO 09/24/16 09:00 09/26/16 09:33 Lanolin (Qgr-P-Cimqfm) 1 applic BEDSIDE MEDICATION PRN TOP BEDSIDE FOR CORIE TO NIPPLES 09/24/16 03:00 Diphtheria/ Tetanus/Acell Pertussis 0.5 ml 0.5 ml ONCE ONCE IM* 09/26/16 09:00 09/26/16 09:01 DC Oxytocin/Lactated Ringer's 500 ml @ 0 mls/hr ONCE PRN IV For Hemorrhage Management 09/24/16 03:00 Methylergonovine Maleate (Methergine) 0.2 mg ONCE PRN IM VAGINAL BLEEDING 09/24/16 03:00 Carboprost Tromethamine (Hemabate) 250 mcg ONCE PRN IM VAGINAL BLEEDING 09/24/16 03:00 Misoprostol 1000 mcg 1,000 mcg ONCE PRN GA VAGINAL BLEEDING 09/24/16 03:00 Cefazolin Sodium 50 ml @ 100 mls/hr ONCE IVPB 09/24/16 03:00 09/24/16 03:01 DC Oxytocin/Lactated Ringer's 500 ml @ 125 mls/hr Q4H IV 09/24/16 02:55 09/25/16 07:40 DC 09/24/16 11:08 Ketorolac Tromethamine (Toradol) 30 mg Q8H PRN IV PAIN 09/24/16 03:30 09/25/16 03:29 DC 09/24/16 18:15 Naloxone HCl (Narcan) 0.1 mg Q2M PRN IV FOR RESP RATE 8 OR LESS 09/24/16 03:30 09/24/16 21:14 DC Hydromorphone HCl (Dilaudid) 0.2 mg Q3H PRN IV PAIN LEVEL 1-5 09/24/16 03:30 09/24/16 21:14 DC Hydromorphone HCl (Dilaudid) 0.4 mg Q3H PRN IV PAIN LEVEL 6-10 09/24/16 03:30 09/24/16 21:14 DC Diphenhydramine HCl (Benadryl) 25 mg Q6H PRN IV ITCHING 09/24/16 03:30 09/24/16 21:14 DC Ondansetron HCl (Zofran Inj) 4 mg Q6H PRN IV NAUSEA AND/OR VOMITING 09/24/16 03:30 09/24/16 21:14 DC Prochlorperazine (Compazine Inj) 10 mg ONCE PRN IV NAUSEA AND/OR VOMITING 09/24/16 03:30 09/24/16 21:14 DC Zolpidem Tartrate (Ambien) 5 mg HS MAY REPEAT X 1 PRN PO INSOMNIA 09/24/16 03:30 09/24/16 21:14 DC Miscellaneous Information (* Miscellaneous Pharmacy Order) Duramorph: 3 mg Epidu... GIVEN XX 09/24/16 03:30 09/24/16 03:59 DC Miscellaneous Information (* Miscellaneous Pharmacy Order) Duramorph: 3 mg Epidu... GIVEN ONCE XX 09/24/16 04:00 09/24/16 04:01 DC Acetaminophen (Tylenol Tab) 650 mg Q4H PRN PO PAIN AND OR ELEVATED TEMP 09/24/16 11:00 Sodium Biphosphate/ Sodium Phosphate (Fleet Enema) 133 ml ONCE ONCE GA 09/25/16 19:30 09/25/16 19:36 DC 09/26/16 08:10 Voiding: Yes Bowel Movement: Yes Breast: Soft, non-tender, Filling Fundus: Firm Abdomen and Incision: Healing well dry free of inflammation Calf Tenderness: No Patient Condition: Good SELAM GORE MD Sep 26, 2016 12:13
== END 2016-09-26 16:12 | disposition home or self-care (01) | DRG 766 ==
LOC: OBT 09:32 → L-D 09:32 → OBT 10:33 → L-D 10:34 → PP1 09-24 01:55
PROVIDERS: ADMIT Obstetrics & Gynecology; ATTEND Obstetrics & Gynecology
PROC: 10D00Z1 Extraction of Products of Conception, Low, Open Approach (ICD-10-PCS; principal; 2016-09-23 20:00)
DX: O62.0 Primary inadequate contractions (principal); Z37.0 Single live birth; Z3A.37 37 weeks gestation of pregnancy
CPT/HCPCS: 62319; 71010; 85025; 85610; 85730; 86592; 86885; 86900; 86901; 87040; 87086; 87340; 88307; 90715; 94760; 99464; G0463; J0290; J0690; J1580; J1885; J2175; J2274; J2370; J2590; J2765; J3010; J3105; J7120; J7121

== ENCOUNTER 2016-10-22 21:34 | Emergency (ER) | payer OTHER ==
[~2016-10-22] VITALS: Ht 154.9 cm; Wt 54.5 kg
[~2016-10-22 21:34] MED LIST changes: +CITRACAL PO; +FERR325C PO
[2016-10-22 21:39] VITALS: Ht 154.9 cm; Wt 54.5 kg
--- NOTE | 2016-10-22 21:59 | ERA ---
ER Documentation Chief Complaint Date/Time DATE: 10/22/16 TIME: 21:59 Chief Complaint Headache with nausea since last night HPI The patient is a 21-year-old female, presenting to the ER because of my temporal headache, 01/09, associated with intermittent dizziness. She denies any dizziness now; she has similar symptoms previously. She complains of right ear pain, denies fever, facial pain, neck pain, chest pain, abdominal pain, vomiting, dysuria, diarrhea. She recently had a about a month ago. She does not smoke nor drink Past medical history: None ROS All systems reviewed and are negative except as per history of present illness. Medications Home Meds Active Scripts Ibuprofen* (Motrin*) 600 Mg Tab, 600 MG PO Q6H Y for PAIN AND OR ELEVATED TEMP, #20 TAB Prov:MORENO CHANDLER MD 10/22/16 Meclizine Hcl* (Antivert*) 12.5 Mg Tab, 25 MG PO Q6H Y for DIZZINESS, #20 TAB Prov:MORENO CHANDLER MD 10/22/16 Reported Medications Calcium Citrate* (Citracal*) 950 Mg Tab, 950 MG PO DAILY, TAB 09/22/16 Ferrous Sulfate (Iron) 325 Mg Capsule.er, 325 MG PO, CAP 09/22/16 Vit W-Ca,Fe,FA(<1 mg) ( Vitamins) 1 Each Tablet, 1 EACH PO DAILY, TAB 08/18/16 Allergies Allergies: Coded Allergies: No Known Allergy (Verified , 09/24/16) PMhx/Soc History of Surgery: Yes (BIOPSY) Anesthesia Reaction: No Hx Neurological Disorder: No Hx Respiratory Disorders: No Hx Cardiac Disorders: No Hx Psychiatric Problems: No Hx Miscellaneous Medical Probl: Yes (migraine VALENCIA) Hx Alcohol Use: No Hx Substance Use: No Hx Tobacco Use: No Physical Exam Vitals Vital Signs Date Time Temp Pulse Resp B/P Pulse Ox O2 Delivery O2 Flow Rate FiO2 10/22/16 22:23 98.7 67 18 101/54 99 Room Air 10/22/16 21:39 98.6 72 20 110/69 99 Physical Exam Const: No acute distress. Head: Atraumatic. Eyes: Normal Conjunctiva. ENT: Normal External Ears, Nose and Mouth. Neck: Full range of motion. No meningismus. Resp: Clear to auscultation bilaterally. Cardio: Regular rate and rhythm, no murmurs. Abd: Soft, non distended, normal bowel sounds, non tender. Skin: No petechiae or rashes. Back: No midline or flank tenderness. Ext: No cyanosis, or edema. Neur: Awake and alert. No focal deficit Psych: Normal Mood and Affect. Procedures/MDM MEDICAL MAKING DECISION: The patient is a 21-year-old female, presenting with acute bitemporal headache, most likely tension headache. The differential diagnoses considered include but are not limited to subarachnoid hemorrhage, occult trauma, CVA, meningitis, encephalitis, hypertension, tension, migraine, cluster, narcotic withdrawal, cervical spine disease. Departure Diagnosis: Primary Impression: Headache Condition: Good Comments She was discharged with Motrin and Antivert I discussed the findings with the patient. I advised the patient to follow-up with the primary physician in about 1-2 days, sooner if needed and return if any concern. MORENO CHANDLER MD Oct 22, 2016 21:59
[2016-10-22] MEDS ORDERED: MECL12.574 PO (22:13)
[2016-10-22] MEDS ORDERED: IBUP-1542 PO (22:13)
[2016-10-22 22:23] VITALS: BP 101/54; PULSE 67; RESP 18; TEMP 98.7
== END 2016-10-22 22:23 | disposition home or self-care (01) ==
LOC: FTE 21:34
DX: R51 Headache (principal)
CPT/HCPCS: 99283

== ENCOUNTER 2016-11-08 17:32 | Emergency (ER) | payer OTHER ==
[~2016-11-08] VITALS: Wt 55.0 kg
[~2016-11-08 17:32] MED LIST changes: +IBUP-1542 PO; +MECL12.574 PO
[2016-11-08] MEDS ORDERED: ACETAMINOPHEN 500 MG TAB PO STA (17:51)
[2016-11-08] MEDS ORDERED: SOD CHLORIDE 0.9% 1,000 ML IV ONE (18:00)
[2016-11-08 18:29] LABS: ADD SCAN DIFF NO
--- NOTE | 2016-11-08 18:30 | ERD ---
ER Documentation Chief Complaint Date/Time DATE: 11/08/16 TIME: 18:19 Chief Complaint FEVER, HEADACHE, ONSET 1 DAY, NO COUGH HPI This is a 21-year-old female who presents emergency department for fever and headache 2 days. Patient has had tactile fevers. Headache is temporal and patient rates pain 8/10. Denies any neck pain and headache does not radiate. No visual changes, blurry vision, or loss of vision. No change in mood or behavior. Patient has a history of migraines and was seen here recently on 10/22 for similar headache. Patient states she has been taking Advil with last dose about 2 hours prior to arrival. Patient recently gave on 09/23/2016 via . Patient had no complications at that time. wound is healed. LMP started 11/01/2016 and patient is currently menstruating. ROS All systems reviewed and are negative except as per history of present illness. Medications Home Meds Active Scripts Acetaminophen* (Tylenol*) 325 Mg Tablet, 2 TAB PO Q6 Y for PAIN AND OR ELEVATED TEMP, #20 TAB Prov:FRACISCO ALMENDAREZ NP 11/08/16 Cephalexin* (Keflex*) 500 Mg Capsule, 500 MG PO QID for 7 Days, CAP Prov:FRACISCO ALMENDAREZ NP 11/08/16 Ibuprofen* (Motrin*) 600 Mg Tab, 600 MG PO Q6H Y for PAIN AND OR ELEVATED TEMP, #20 TAB Prov:MORENO CHANDLER MD 10/22/16 Meclizine Hcl* (Antivert*) 12.5 Mg Tab, 25 MG PO Q6H Y for DIZZINESS, #20 TAB Prov:MORENO CHANDLER MD 10/22/16 Reported Medications Calcium Citrate* (Citracal*) 950 Mg Tab, 950 MG PO DAILY, TAB 09/22/16 Ferrous Sulfate (Iron) 325 Mg Capsule.er, 325 MG PO, CAP 09/22/16 Vit W-Ca,Fe,FA(<1 mg) ( Vitamins) 1 Each Tablet, 1 EACH PO DAILY, TAB 08/18/16 Allergies Allergies: Coded Allergies: No Known Allergy (Verified , 11/08/16) PMhx/Soc History of Surgery: Yes (BIOPSY, ) Anesthesia Reaction: No Hx Neurological Disorder: No Hx Respiratory Disorders: No Hx Cardiac Disorders: No Hx Psychiatric Problems: No Hx Miscellaneous Medical Probl: Yes (migraine VALENCIA) Hx Alcohol Use: No Hx Substance Use: No Hx Tobacco Use: No Smoking Status: Never smoker Physical Exam Vitals Vital Signs Date Time Temp Pulse Resp B/P Pulse Ox O2 Delivery O2 Flow Rate FiO2 11/08/16 20:59 99.6 108 16 113/56 99 Room Air 11/08/16 17:36 103.8 146 18 109/61 96 Physical Exam Const: No acute distress, alert Head: Atraumatic Eyes: Normal Conjunctiva ENT: Normal External Ears, Nose and Mouth. Neck: Full range of motion..~ No meningismus. Resp: Clear to auscultation bilaterally Cardio: Regular rate and rhythm, no murmurs Abd: Soft, non tender, non distended. Normal bowel sounds Skin: healed scar to suprapubic region. no rashes. Back: No midline or flank tenderness Ext: No cyanosis, or edema Neur: Awake and alert Psych: Normal Mood and Affect Result Diagram: 11/08/16181411/08/161814 Results 24 hrs Laboratory Tests Test 11/08/16 18:15 11/08/16 18:32 11/08/16 18:34 White Blood Count 8.610^3/ul Red Blood Count 4.2410^6/ul Hemoglobin 12.8g/dl Hematocrit 38.3% Mean Corpuscular Volume 90.3fl Mean Corpuscular Hemoglobin 30.2pg Mean Corpuscular Hemoglobin Concent 33.4g/dl Red Cell Distribution Width 11.8% Platelet Count 98480^3/UL Mean Platelet Volume 8.8fl Neutrophils % 89.0% Lymphocytes % 6.4% Monocytes % 4.2% Eosinophils % 0.0% Basophils % 0.1% Nucleated Red Blood Cells % 0.0/100WBC Neutrophils # 7.710^3/ul Lymphocytes # 0.610^3/ul Monocytes # 0.410^3/ul Eosinophils # 0.010^3/ul Basophils # 0.010^3/ul Nucleated Red Blood Cells # 0.010^3/ul Sodium Level 136mmol/L Potassium Level 3.2mmol/L Chloride Level 102mmol/L Carbon Dioxide Level 22mmol/L Anion Gap 15 Blood Urea Nitrogen 9mg/dl Creatinine 0.74mg/dl Glucose Level 131mg/dl Calcium Level 9.0mg/dl Urine Color LT. YELLOW Urine Clarity CLEAR Urine pH 5.5 Urine Specific [place] <=1.005 Urine Ketones NEGATIVE Urine Nitrite NEGATIVE Urine Bilirubin NEGATIVE Urine Urobilinogen 0.2 E.U./dL Urine Leukocyte Esterase TRACE Urine Microscopic RBC 25-50/HPF Urine Microscopic WBC 2-5/HPF Urine Squamous Epithelial Cells MANY Urine Bacteria FEW Urine Hemoglobin 3+ Urine Glucose NEGATIVE% Urine Total Protein NEGATIVE Bedside Urine pH (LAB) 6.0 Bedside Urine Protein (LAB) 1+ Bedside Urine Glucose (UA) Negative Bedside Urine Ketones (LAB) Negative Bedside Urine Blood 3+ Bedside Urine Nitrite (LAB) Negative Bedside Urine Leukocyte Esterase (L Trace Current Medications Medications (Trade) Dose Ordered Sig/Alcon Route PRN Reason Start Time Stop Time Status Last Admin Dose Admin Sodium Chloride (NS) 1,000 ml @ 1,000 mls/hr Q1H ONCE IV 11/08/16 18:00 11/08/16 18:59 DC 11/08/16 18:50 Acetaminophen (Tylenol Tab) 500 mg ONCE STAT PO 11/08/16 17:51 11/08/16 17:55 DC 11/08/16 18:52 Diphenhydramine HCl (Benadryl) 25 mg ONCE ONCE IV 11/08/16 19:00 11/08/16 19:02 DC 11/08/16 19:12 Metoclopramide HCl (Reglan) 10 mg ONCE ONCE IV 11/08/16 19:00 11/08/16 19:02 DC 11/08/16 19:12 Procedures/MDM ED COURSE: The patient was stable throughout ED course. I kept the patient and/or family informed of laboratory and diagnostic imaging results throughout the ED course. Laboratory CBC no significant infection or anemia CMP no significant electrolyte imbalance Urine dip trace leukocytosis MDM: 21-year-old female presents emergency department for fever and headache 2 days. No neurological deficits. Denies any visual changes. No loss of vision. Patient has history of migraine headaches and was recently here on 10/22 for temporal headaches. IV access obtained. Patient given Benadryl, Reglan and Tylenol on the ED along with an IV fluid bolus of normal saline. Upon reassessment, patient states headache has improved and she states she feels much better. Urine shows trace leukocytosis. Discussed findings with Dr. Gann and we feel is appropriate to treat this patient for likely UTI. Diagnosis is UTI and headache. Low suspicion for pyelonephritis, sepsis, meningitis, TIA or intracranial hemorrhage. Patient is appropriate for outpatient management will be given prescription for Keflex and Tylenol. Instructed patient to follow-up with primary care provider in the next 2-3 days for reassessment. Return to ED for any high fever, chest pain, difficulty breathing, shortness breath, wheezing, vomiting, diarrhea, abdominal pain or any new or worsening symptoms. Patient verbalizes understanding. All questions answered at discharge. Departure Diagnosis: Primary Impression: Headache Headache type: unspecified Headache chronicity pattern: acute headache Intractability: not intractable Qualified Code: R51 - Acute nonintractable headache, unspecified headache type Additional Impression: UTI (urinary tract infection) Urinary tract infection type: site unspecified Hematuria presence: with hematuria Qualified Code: N39.0 - Urinary tract infection with hematuria, site unspecified FRACISCO ALMENDAREZ NP Nov 08, 2016 18:29
[2016-11-08 18:32] LABS: ABNORMAL IP MESSAGE 1; BASOPHILS % 0.1 % (0.0-2.0); HEMATOCRIT 38.3 % (37.0-47.0); HEMOGLOBIN 12.8 g/dl (12.0-16.0); LYMPHOCYTES # 0.6 10^3/ul (0.8-2.9); LYMPHOCYTES % 6.4 % (15.0-51.0); MEAN CORPUSCULAR HEMOGLOBIN 30.2 pg (29.0-33.0); MEAN CORPUSCULAR HGB CONC 33.4 g/dl (32.0-37.0); MEAN CORPUSCULAR VOLUME 90.3 fl (82.0-101.0); MEAN PLATELET VOLUME 8.8 fl (7.4-10.4); MONOCYTE # 0.4 10^3/ul (0.3-0.9); MONOCYTES % 4.2 % (0.0-11.0); NEUTROPHIL # 7.7 10^3/ul (1.6-7.5); PLATELET COUNT 266 10^3/UL (140-415); RED BLOOD COUNT 4.24 10^6/ul (4.20-5.40); RED CELL DISTRIBUTION WIDTH 11.8 % (11.5-14.5); WHITE BLOOD COUNT 8.6 10^3/ul (4.8-10.8)
[2016-11-08 18:35] LABS: URINE BLOOD (Dip) POC 3+ (NEGATIVE)
[2016-11-08 18:44] LABS: POTASSIUM 3.2 mmol/L (3.5-5.1)
[2016-11-08 18:47] LABS: CREATININE 0.74 mg/dl (0.44-1.00)
[2016-11-08] MEDS ORDERED: METOCLOPRAMIDE 10 MG INJ IV ONE (19:00)
[2016-11-08] MEDS ORDERED: DIPHENHYDRAMINE 50 MG INJ IV ONE (19:00)
[2016-11-08 19:24] LABS: ADD UMIC YES; URINE BILIRUBIN (Dip) NEGATIVE (NEGATIVE); URINE BLOOD (Dip) 3+ (NEGATIVE); URINE COLOR LT. YELLOW (YELLOW); URINE GLUCOSE (Dip) NEGATIVE (NEGATIVE); URINE KETONES (Dip) NEGATIVE (NEGATIVE); URINE LEUKOCYTE ESTERASE (Dip) TRACE (NEGATIVE); URINE NITRITE (Dip) NEGATIVE (NEGATIVE); URINE TOTAL PROTEIN (Dip) NEGATIVE (NEGATIVE); URINE UROBILINOGEN (Dip) 0.2 E.U./dL (0.1-1.0)
[2016-11-08 19:53] LABS: BACTERIA,URINE FEW; SQUAMOUS EPITHELIAL CELL,UR MANY; URINE RBCS 25-50 /HPF (0)
[2016-11-08] MEDS ORDERED: CEPH-443 PO (20:31)
[2016-11-08] MEDS ORDERED: ACET325T33 PO (20:31)
[2016-11-08 20:59] VITALS: BP 113/56; PULSE 108; RESP 16; TEMP 99.6
== END 2016-11-08 21:02 | disposition home or self-care (01) ==
LOC: FTE 17:32
DX: R51 Headache (principal); N39.0 Urinary tract infection, site not specified
CPT/HCPCS: 80048; 81001; 81003; 85025; 87086; 87400; J1200; J2765; J7030; Z7610; 36415; 96374; 96375

== ENCOUNTER 2018-01-19 11:26 | Emergency (ER) | END 2018-01-19 11:48 | disposition home or self-care (01) ==

== ENCOUNTER 2018-05-20 21:39 | Emergency (ER) | END 2018-05-21 01:30 | disposition home or self-care (01) ==